=== PATIENT | female | born 1980 | race Caucasian/White ===

== ENCOUNTER 2022-06-16 16:06 | Inpatient (IN) | payer OTHER ==
[~2022-06-16] VITALS: Ht 170.2 cm; Wt 91.2 kg
[2022-06-16 16:37] LABS: BASOPHILS % (AUTO) 0.5 % (0.0-2.0); EOSINOPHILS % (AUTO) 1.5 % (1.0-6.0); HEMATOCRIT 26.3 % (36-46); HEMOGLOBIN 8.4 g/dL (12.0-16.0); LYMPHOCYTES # (AUTO) 1.6 K/uL (1.0-4.8); LYMPHOCYTES % (AUTO) 17.7 % (22.0-44.0); MEAN CORPUSCULAR HEMOGLOBIN 27.8 pg (26.0-34.0); MEAN CORPUSCULAR HGB CONC 31.9 G/dL (31.0-37.0); MEAN CORPUSCULAR VOLUME 87 fL (80-100); MONOCYTES # (AUTO) 0.7 K/uL (0.1-1.0); MONOCYTES % (AUTO) 8.1 % (2.0-9.0); NEUTROPHILS # (AUTO) 6.6 K/uL (1.8-7.7); NEUTROPHILS % (AUTO) 72.2 % (40.0-70.0); PLATELET COUNT (AUTO) 367 K/uL (150-450); RED BLOOD CELL COUNT(AUTO) 3.01 MIL/uL (4.00-5.20); RED CELL DISTRIBUTION WIDTH 15.9 % (11.5-14.5)
[2022-06-16 16:53] LABS: LACTIC ACID 0.6 mmol/L (0.4-2.0)
[2022-06-16 16:57] LABS: ANION GAP 8 mmol/L (8-16); CALCIUM, TOTAL 8.9 mg/dL (8.8-10.5); CARBON DIOXIDE 25 mmol/L (22-29); CHLORIDE 105 mmol/L (98-107); CREATININE 0.69 mg/dL (0.60-1.30); GLOMERULAR FILTR. RATE CALC > 60 mL/min (>60); GLUCOSE,RANDOM 107 mg/dL (70-110); POTASSIUM 3.4 mmol/L (3.5-5.1); SODIUM SERUM 138 mmol/L (136-145)
[2022-06-16 17:02] LABS: ALBUMIN 3.2 g/dL (3.4-5.0); ALKALINE PHOSPHATASE 92 U/L (46-116); ASPARTATE AMINOTRANSFERASE 10 U/L (15-37); BILIRUBIN,TOTAL 0.5 mg/dL (0.1-1.0)
[2022-06-16] MEDS ORDERED: IOHEXOL 350 MG/ML 100 ML VIAL ONE (17:07)
[2022-06-16] MEDS ORDERED: SODIUM CHLORIDE 0.9% 100 ML ONE (17:08)
[2022-06-16 17:12] LABS: TOTAL PROTEIN, SERUM 3.9 g/dL (6.4-8.2)
[2022-06-16] MEDS ORDERED: VANCOMYCIN HCL 1.25 GM in DEXTROSE 5%-WATER 250 ML IV ONE (17:15)
[2022-06-16 17:20] LABS: ALANINE AMINOTRANSFERASE 14 U/L (12-78)
[2022-06-16] MEDS ORDERED: CEFEPIME HCL 2 GM in DEXTROSE 5%-WATER 50 ML IV ONE (18:00)
[2022-06-16 18:24] LABS: COVID AG,FIA SOURCE NASOPHARYNGEAL
[2022-06-16] MEDS ORDERED: ACETAMINOPHEN 325 MG TABLET PO PRN (18:45)
[2022-06-16] MEDS ORDERED: 0.9% SODIUM CHLORIDE 10 ML SYRINGE IVP PRN (18:45)
[2022-06-16] MEDS ORDERED: ONDANSETRON HCL 4 MG/2 ML VIAL IVP PRN ×2 (18:45→19:00)
[2022-06-16] MEDS ORDERED: KETOROLAC TROMETHAMINE 15 MG/ML VIAL IVP PRN (19:00)
[2022-06-16 20:43] VITALS: BP 144/54
[2022-06-16] MEDS: DOCUSATE SODIUM 100 MG CAPSULE PO SCH (21:00)
[2022-06-16 21:23] LABS: % IRON SATURATION 4.3 % (22-44)
[2022-06-16] MEDS ORDERED: SODIUM CHLORIDE 0.9% 500 ML IV ONE (23:28)
[2022-06-16] MEDS: VANCOMYCIN HCL 1.5 GM in DEXTROSE 5%-WATER 250 ML IV SCH (23:41)
[2022-06-17] MEDS: PIPERACILLIN/TAZO 3.375 GM/D5W 50 ML IV SCH ×4 (02:57→20:33)
[2022-06-17 04:12] VITALS: BP 133/82
[2022-06-17 08:24] LABS: BASOPHILS % (AUTO) 1.4 % (0.0-2.0); EOSINOPHILS % (AUTO) 2.4 % (1.0-6.0); HEMATOCRIT 35.8 % (36-46); HEMOGLOBIN 11.8 g/dL (12.0-16.0); MEAN CORPUSCULAR HEMOGLOBIN 28.7 pg (26.0-34.0); MEAN CORPUSCULAR HGB CONC 33.1 G/dL (31.0-37.0); MEAN CORPUSCULAR VOLUME 87 fL (80-100); MONOCYTES # (AUTO) 0.7 K/uL (0.1-1.0); MONOCYTES % (AUTO) 8.1 % (2.0-9.0); NEUTROPHILS # (AUTO) 5.9 K/uL (1.8-7.7); NEUTROPHILS % (AUTO) 66.1 % (40.0-70.0); PLATELET COUNT (AUTO) 499 K/uL (150-450); RED BLOOD CELL COUNT(AUTO) 4.12 MIL/uL (4.00-5.20); RED CELL DISTRIBUTION WIDTH 16.5 % (11.5-14.5)
[2022-06-17 08:38] LABS: ALANINE AMINOTRANSFERASE 12 U/L (12-78); ALKALINE PHOSPHATASE 78 U/L (46-116); ANION GAP 7 mmol/L (8-16); ASPARTATE AMINOTRANSFERASE 9 U/L (15-37); BILIRUBIN,TOTAL 0.4 mg/dL (0.1-1.0); CALCIUM, TOTAL 8.6 mg/dL (8.8-10.5); CARBON DIOXIDE 27 mmol/L (22-29); CHLORIDE 104 mmol/L (98-107); CREATININE 0.72 mg/dL (0.60-1.30); GLOMERULAR FILTR. RATE CALC > 60 mL/min (>60); GLUCOSE,RANDOM 128 mg/dL (70-110); POTASSIUM 3.1 mmol/L (3.5-5.1); SODIUM SERUM 138 mmol/L (136-145)
[2022-06-17 08:41] VITALS: BP 89/52
[2022-06-17] MEDS: SODIUM CHLORIDE 0.9% 1,000 ML IV SCH ×2 (08:41→21:42)
[2022-06-17] MEDS: DOCUSATE SODIUM 100 MG CAPSULE PO SCH ×2 (08:41→21:00)
[2022-06-17] MEDS: VANCOMYCIN HCL 1.5 GM in DEXTROSE 5%-WATER 250 ML IV SCH (08:41)
[2022-06-17] MEDS: VANCOMYCIN HCL 1.25 GM in DEXTROSE 5%-WATER 250 ML IV SCH ×2 (16:45→23:45)
[2022-06-17 19:35] VITALS: BP 132/71
[2022-06-17] MEDS: POTASSIUM CHLORIDE 20 MEQ ER TABLET PO PRN (22:13)
[2022-06-17] MEDS ORDERED: POTASSIUM CHL 10 MEQ/WATER 50 ML IV PRN (22:15)
[2022-06-17] MEDS: HEPARIN SODIUM,PORCINE 5,000 UNITS/ML VIAL SQ SCH (23:50)
[2022-06-18] MEDS: PIPERACILLIN/TAZO 3.375 GM/D5W 50 ML IV SCH ×4 (02:40→20:16)
[2022-06-18 04:05] VITALS: BP 126/72
[2022-06-18 07:04] LABS: EOSINOPHILS % (AUTO) 3.9 % (1.0-6.0); HEMATOCRIT 34.7 % (36-46); HEMOGLOBIN 11.3 g/dL (12.0-16.0); LYMPHOCYTES # (AUTO) 2.1 K/uL (1.0-4.8); LYMPHOCYTES % (AUTO) 31.1 % (22.0-44.0); MEAN CORPUSCULAR HEMOGLOBIN 28.1 pg (26.0-34.0); MEAN CORPUSCULAR HGB CONC 32.6 G/dL (31.0-37.0); MEAN CORPUSCULAR VOLUME 86 fL (80-100); MONOCYTES # (AUTO) 0.6 K/uL (0.1-1.0); NEUTROPHILS # (AUTO) 3.8 K/uL (1.8-7.7); PLATELET COUNT (AUTO) 509 K/uL (150-450); RED BLOOD CELL COUNT(AUTO) 4.03 MIL/uL (4.00-5.20); RED CELL DISTRIBUTION WIDTH 16.1 % (11.5-14.5)
[2022-06-18 07:26] LABS: ANION GAP 7 mmol/L (8-16); CALCIUM, TOTAL 8.7 mg/dL (8.8-10.5); CARBON DIOXIDE 27 mmol/L (22-29); CHLORIDE 103 mmol/L (98-107); CREATININE 0.68 mg/dL (0.60-1.30); GLOMERULAR FILTR. RATE CALC > 60 mL/min (>60); GLUCOSE,RANDOM 97 mg/dL (70-110); POTASSIUM 3.5 mmol/L (3.5-5.1); SODIUM SERUM 137 mmol/L (136-145); VANCOMYCIN,RANDOM 20.6 mcg/mL (25.0-50.0)
[2022-06-18 07:41] VITALS: BP 138/80
[2022-06-18] MEDS: DOCUSATE SODIUM 100 MG CAPSULE PO SCH ×2 (08:16→20:22)
[2022-06-18] MEDS: HEPARIN SODIUM,PORCINE 5,000 UNITS/ML VIAL SQ SCH ×3 (08:19→23:41)
[2022-06-18] MEDS: VANCOMYCIN HCL 1.25 GM in DEXTROSE 5%-WATER 250 ML IV SCH ×3 (09:13→23:36)
[2022-06-18] MEDS: SODIUM CHLORIDE 0.9% 1,000 ML IV SCH (12:21)
[2022-06-18 15:30] VITALS: BP 127/75
[2022-06-18 19:53] VITALS: BP 133/77
[2022-06-19] MEDS: SODIUM CHLORIDE 0.9% 1,000 ML IV SCH (02:39)
[2022-06-19] MEDS: PIPERACILLIN/TAZO 3.375 GM/D5W 50 ML IV SCH ×4 (02:46→20:06)
[2022-06-19 04:12] VITALS: BP 124/84
[2022-06-19 07:24] LABS: BASOPHILS % (AUTO) 0.8 % (0.0-2.0); EOSINOPHILS % (AUTO) 3.2 % (1.0-6.0); HEMATOCRIT 36.2 % (36-46); HEMOGLOBIN 11.6 g/dL (12.0-16.0); LYMPHOCYTES # (AUTO) 2.3 K/uL (1.0-4.8); LYMPHOCYTES % (AUTO) 29.4 % (22.0-44.0); MEAN CORPUSCULAR HEMOGLOBIN 27.7 pg (26.0-34.0); MEAN CORPUSCULAR HGB CONC 32.2 G/dL (31.0-37.0); MEAN CORPUSCULAR VOLUME 86 fL (80-100); MONOCYTES # (AUTO) 0.6 K/uL (0.1-1.0); MONOCYTES % (AUTO) 7.4 % (2.0-9.0); NEUTROPHILS # (AUTO) 4.6 K/uL (1.8-7.7); NEUTROPHILS % (AUTO) 59.2 % (40.0-70.0); PLATELET COUNT (AUTO) 524 K/uL (150-450); RED CELL DISTRIBUTION WIDTH 16.4 % (11.5-14.5)
[2022-06-19 07:36] LABS: ANION GAP 8 mmol/L (8-16); C-REACTIVE PROTEIN QUANT 1.11 mg/dL (0.00-0.30); CALCIUM, TOTAL 9.1 mg/dL (8.8-10.5); CARBON DIOXIDE 27 mmol/L (22-29); CHLORIDE 102 mmol/L (98-107); CREATININE 0.65 mg/dL (0.60-1.30); GLOMERULAR FILTR. RATE CALC > 60 mL/min (>60); GLUCOSE,RANDOM 91 mg/dL (70-110); POTASSIUM 3.5 mmol/L (3.5-5.1); SODIUM SERUM 137 mmol/L (136-145)
[2022-06-19 08:08] VITALS: BP 130/87
[2022-06-19] MEDS: HEPARIN SODIUM,PORCINE 5,000 UNITS/ML VIAL SQ SCH ×3 (08:09→23:57)
[2022-06-19] MEDS: DOCUSATE SODIUM 100 MG CAPSULE PO SCH ×2 (08:10→20:06)
[2022-06-19] MEDS: VANCOMYCIN HCL 1.25 GM in DEXTROSE 5%-WATER 250 ML IV SCH ×3 (09:07→23:57)
[2022-06-19 15:10] VITALS: BP 118/71
[2022-06-19 20:05] VITALS: BP 131/84
[2022-06-20] MEDS: PIPERACILLIN/TAZO 3.375 GM/D5W 50 ML IV SCH ×3 (02:01→15:11)
[2022-06-20] MEDS: SODIUM CHLORIDE 0.9% 1,000 ML IV SCH ×2 (02:01→23:51)
[2022-06-20 04:35] VITALS: BP 134/76
[2022-06-20 07:14] LABS: ANION GAP 10 mmol/L (8-16); CARBON DIOXIDE 27 mmol/L (22-29); CHLORIDE 100 mmol/L (98-107); CREATININE 0.72 mg/dL (0.60-1.30); GLOMERULAR FILTR. RATE CALC > 60 mL/min (>60); GLUCOSE,RANDOM 88 mg/dL (70-110); POTASSIUM 3.6 mmol/L (3.5-5.1); SODIUM SERUM 137 mmol/L (136-145); VANCOMYCIN,RANDOM 25.4 mcg/mL (25.0-50.0)
[2022-06-20 08:36] VITALS: BP 117/79
[2022-06-20] MEDS: DOCUSATE SODIUM 100 MG CAPSULE PO SCH ×2 (09:00→20:24)
[2022-06-20] MEDS: HEPARIN SODIUM,PORCINE 5,000 UNITS/ML VIAL SQ SCH ×3 (09:14→23:51)
[2022-06-20] MEDS: MUPIROCIN CALCIUM 2% 22 GM OINTMENT TP SCH (09:18)
[2022-06-20] MEDS: VANCOMYCIN HCL 1.25 GM in DEXTROSE 5%-WATER 250 ML IV SCH (09:48)
[2022-06-20] MEDS ORDERED: IOHEXOL 350 MG/ML 100 ML VIAL ONE (15:52)
[2022-06-20] MEDS ORDERED: SODIUM CHLORIDE 0.9% 100 ML ONE (15:53)
[2022-06-20 16:37] VITALS: BP 119/72
[2022-06-20 19:50] VITALS: BP 115/80
[2022-06-21 04:52] VITALS: BP 110/63
[2022-06-21 07:47] VITALS: BP 130/68
[2022-06-21] MEDS: HEPARIN SODIUM,PORCINE 5,000 UNITS/ML VIAL SQ SCH ×3 (08:56→23:43)
[2022-06-21] MEDS: MUPIROCIN CALCIUM 2% 22 GM OINTMENT TP SCH (08:56)
[2022-06-21] MEDS: DOCUSATE SODIUM 100 MG CAPSULE PO SCH ×2 (08:56→21:00)
[2022-06-21] MEDS: SODIUM CHLORIDE 0.9% 1,000 ML IV SCH (14:08)
[2022-06-21 14:11] LABS: INR 0.9 (0.9-1.1); PROTHROMBIN TIME 9.8 SEC (9.4-11.6)
[2022-06-21 15:53] VITALS: BP 104/51
[2022-06-21 19:37] VITALS: BP 129/72
[2022-06-22] MEDS: SODIUM CHLORIDE 0.9% 1,000 ML IV SCH ×2 (02:21→16:27)
[2022-06-22 04:58] VITALS: BP 118/80
[2022-06-22 07:42] VITALS: BP 118/70
[2022-06-22] MEDS: HEPARIN SODIUM,PORCINE 5,000 UNITS/ML VIAL SQ SCH ×2 (08:00→15:56)
[2022-06-22] MEDS: DOCUSATE SODIUM 100 MG CAPSULE PO SCH ×2 (09:00→20:34)
[2022-06-22] MEDS: MUPIROCIN CALCIUM 2% 22 GM OINTMENT TP SCH (10:23)
[2022-06-22] MEDS ORDERED: FentaNYL CITRATE PF 100 MCG/2 ML VIAL ONE (14:17)
[2022-06-22] MEDS ORDERED: MIDAZOLAM HCL 2 MG/2 ML VIAL ONE (14:17)
[2022-06-22] MEDS ORDERED: FLUMAZENIL 0.1 MG/ML 5 ML VIAL IVP ONE (14:18)
[2022-06-22] MEDS ORDERED: NALOXONE HCL 0.4 MG/ML VIAL ONE (14:18)
[2022-06-22] MEDS ORDERED: MIDAZOLAM HCL 2 MG/2 ML VIAL IVP ONE ×2 (17:30)
[2022-06-22] MEDS ORDERED: FentaNYL CITRATE PF 100 MCG/2 ML VIAL IVP ONE ×2 (17:30)
[2022-06-22 20:16] VITALS: BP 128/59
[2022-06-23 04:38] VITALS: BP 116/75
[2022-06-23 07:41] VITALS: BP 118/71
[2022-06-23] MEDS: DOCUSATE SODIUM 100 MG CAPSULE PO SCH ×2 (08:30→19:55)
[2022-06-23] MEDS: MUPIROCIN CALCIUM 2% 22 GM OINTMENT TP SCH (08:30)
[2022-06-23] MEDS: HEPARIN SODIUM,PORCINE 5,000 UNITS/ML VIAL SQ SCH ×4 (08:30→23:55)
[2022-06-23] MEDS ORDERED: VANCOMYCIN HCL 1.25 GM in DEXTROSE 5%-WATER 250 ML IV ONE (18:00)
[2022-06-23] MEDS: CEFEPIME HCL 2 GM in DEXTROSE 5%-WATER 50 ML IV SCH (18:16)
[2022-06-23 20:41] VITALS: BP 115/74
[2022-06-23] MEDS: VANCOMYCIN HCL 1.25 GM in DEXTROSE 5%-WATER 250 ML IV SCH (23:51)
[2022-06-24] MEDS: CEFEPIME HCL 2 GM in DEXTROSE 5%-WATER 50 ML IV SCH ×3 (02:40→18:13)
[2022-06-24 04:34] VITALS: BP 118/60
[2022-06-24 07:13] LABS: ANION GAP 10 mmol/L (8-16); CALCIUM, TOTAL 9.3 mg/dL (8.8-10.5); CARBON DIOXIDE 24 mmol/L (22-29); CHLORIDE 100 mmol/L (98-107); CREATININE 0.77 mg/dL (0.60-1.30); GLOMERULAR FILTR. RATE CALC > 60 mL/min (>60); GLUCOSE,RANDOM 90 mg/dL (70-110); POTASSIUM 3.9 mmol/L (3.5-5.1); SODIUM SERUM 134 mmol/L (136-145)
[2022-06-24 07:59] VITALS: BP 115/66
[2022-06-24] MEDS: HEPARIN SODIUM,PORCINE 5,000 UNITS/ML VIAL SQ SCH ×3 (08:14→23:11)
[2022-06-24] MEDS: VANCOMYCIN HCL 1.25 GM in DEXTROSE 5%-WATER 250 ML IV SCH ×3 (08:14→23:11)
[2022-06-24] MEDS: MUPIROCIN CALCIUM 2% 22 GM OINTMENT TP SCH (08:24)
[2022-06-24] MEDS: DOCUSATE SODIUM 100 MG CAPSULE PO SCH ×2 (08:26→21:00)
[2022-06-24 15:51] VITALS: BP 117/67
[2022-06-24 19:36] VITALS: BP 125/66
[2022-06-25] MEDS: CEFEPIME HCL 2 GM in DEXTROSE 5%-WATER 50 ML IV SCH ×3 (02:27→17:43)
[2022-06-25 04:43] VITALS: BP 125/72
[2022-06-25 07:38] VITALS: BP 115/69
[2022-06-25] MEDS: HEPARIN SODIUM,PORCINE 5,000 UNITS/ML VIAL SQ SCH ×3 (07:49→23:15)
[2022-06-25] MEDS: VANCOMYCIN HCL 1.25 GM in DEXTROSE 5%-WATER 250 ML IV SCH ×3 (07:54→23:15)
[2022-06-25] MEDS: DOCUSATE SODIUM 100 MG CAPSULE PO SCH ×2 (07:54→19:44)
[2022-06-25 07:58] LABS: ANION GAP 11 mmol/L (8-16); CALCIUM, TOTAL 9.5 mg/dL (8.8-10.5); CARBON DIOXIDE 24 mmol/L (22-29); CHLORIDE 100 mmol/L (98-107); CREATININE 0.68 mg/dL (0.60-1.30); GLOMERULAR FILTR. RATE CALC > 60 mL/min (>60); GLUCOSE,RANDOM 92 mg/dL (70-110); POTASSIUM 4.1 mmol/L (3.5-5.1); SODIUM SERUM 135 mmol/L (136-145); VANCOMYCIN,RANDOM 20.2 mcg/mL (25.0-50.0)
[2022-06-25] MEDS: MUPIROCIN CALCIUM 2% 22 GM OINTMENT TP SCH (07:59)
[2022-06-25 20:28] VITALS: BP 116/69
[2022-06-26] MEDS: CEFEPIME HCL 2 GM in DEXTROSE 5%-WATER 50 ML IV SCH ×3 (01:50→22:23)
[2022-06-26 07:31] LABS: ANION GAP 6 mmol/L (8-16); CALCIUM, TOTAL 9.3 mg/dL (8.8-10.5); CARBON DIOXIDE 26 mmol/L (22-29); CHLORIDE 98 mmol/L (98-107); CREATININE 0.71 mg/dL (0.60-1.30); GLOMERULAR FILTR. RATE CALC > 60 mL/min (>60); GLUCOSE,RANDOM 93 mg/dL (70-110); POTASSIUM 3.6 mmol/L (3.5-5.1); SODIUM SERUM 130 mmol/L (136-145)
[2022-06-26 08:07] VITALS: BP 108/64
[2022-06-26] MEDS: HEPARIN SODIUM,PORCINE 5,000 UNITS/ML VIAL SQ SCH ×2 (08:33→16:20)
[2022-06-26] MEDS: VANCOMYCIN HCL 1.25 GM in DEXTROSE 5%-WATER 250 ML IV SCH ×2 (08:33→16:20)
[2022-06-26] MEDS: MUPIROCIN CALCIUM 2% 22 GM OINTMENT TP SCH (08:45)
[2022-06-26] MEDS: DOCUSATE SODIUM 100 MG CAPSULE PO SCH ×2 (08:46→21:00)
[2022-06-26 20:30] VITALS: BP 117/68
[2022-06-27] MEDS: VANCOMYCIN HCL 1.25 GM in DEXTROSE 5%-WATER 250 ML IV SCH ×2 (00:01→08:19)
[2022-06-27] MEDS: HEPARIN SODIUM,PORCINE 5,000 UNITS/ML VIAL SQ SCH ×4 (00:01→23:08)
[2022-06-27] MEDS: CEFEPIME HCL 2 GM in DEXTROSE 5%-WATER 50 ML IV SCH ×3 (02:30→18:16)
[2022-06-27 04:54] VITALS: BP 118/74
[2022-06-27 07:03] LABS: BASOPHILS % (AUTO) 0.8 % (0.0-2.0); EOSINOPHILS % (AUTO) 2.5 % (1.0-6.0); HEMATOCRIT 37.9 % (36-46); HEMOGLOBIN 12.6 g/dL (12.0-16.0); LYMPHOCYTES # (AUTO) 2.8 K/uL (1.0-4.8); LYMPHOCYTES % (AUTO) 28.9 % (22.0-44.0); MEAN CORPUSCULAR HEMOGLOBIN 28.8 pg (26.0-34.0); MEAN CORPUSCULAR HGB CONC 33.2 G/dL (31.0-37.0); MEAN CORPUSCULAR VOLUME 87 fL (80-100); MONOCYTES # (AUTO) 0.9 K/uL (0.1-1.0); NEUTROPHILS # (AUTO) 5.8 K/uL (1.8-7.7); NEUTROPHILS % (AUTO) 58.8 % (40.0-70.0); PLATELET COUNT (AUTO) 321 K/uL (150-450); RED BLOOD CELL COUNT(AUTO) 4.38 MIL/uL (4.00-5.20); RED CELL DISTRIBUTION WIDTH 15.7 % (11.5-14.5)
[2022-06-27 07:28] LABS: ALANINE AMINOTRANSFERASE 15 U/L (12-78); ALBUMIN 3.3 g/dL (3.4-5.0); ALKALINE PHOSPHATASE 75 U/L (46-116); ANION GAP 7 mmol/L (8-16); ASPARTATE AMINOTRANSFERASE 9 U/L (15-37); BILIRUBIN,TOTAL 0.3 mg/dL (0.1-1.0); C-REACTIVE PROTEIN QUANT 0.08 mg/dL (0.00-0.30); CARBON DIOXIDE 27 mmol/L (22-29); CHLORIDE 101 mmol/L (98-107); GLOMERULAR FILTR. RATE CALC > 60 mL/min (>60); GLUCOSE,RANDOM 88 mg/dL (70-110); POTASSIUM 3.8 mmol/L (3.5-5.1); SODIUM SERUM 135 mmol/L (136-145); TOTAL PROTEIN, SERUM 7.5 g/dL (6.4-8.2); VANCOMYCIN,RANDOM 32.8 mcg/mL (25.0-50.0)
[2022-06-27 08:00] VITALS: BP 129/64
[2022-06-27] MEDS: MUPIROCIN CALCIUM 2% 22 GM OINTMENT TP SCH (08:19)
[2022-06-27] MEDS: DOCUSATE SODIUM 100 MG CAPSULE PO SCH ×2 (08:26→20:44)
[2022-06-27] MEDS ORDERED: VANCOMYCIN HCL 1 GM in DEXTROSE 5%-WATER 250 ML IV ONE (11:00)
[2022-06-27 15:32] VITALS: BP 110/66
[2022-06-27] MEDS: VANCOMYCIN HCL 1 GM in DEXTROSE 5%-WATER 250 ML IV SCH ×2 (16:31→23:08)
[2022-06-27 20:30] VITALS: BP 126/63
[2022-06-28] MEDS: CEFEPIME HCL 2 GM in DEXTROSE 5%-WATER 50 ML IV SCH ×3 (01:44→17:22)
[2022-06-28 06:18] VITALS: BP 120/64
[2022-06-28] MEDS: VANCOMYCIN HCL 1 GM in DEXTROSE 5%-WATER 250 ML IV SCH ×3 (07:44→23:34)
[2022-06-28] MEDS: HEPARIN SODIUM,PORCINE 5,000 UNITS/ML VIAL SQ SCH ×3 (07:45→23:34)
[2022-06-28] MEDS: DOCUSATE SODIUM 100 MG CAPSULE PO SCH ×2 (07:45→21:00)
[2022-06-28 07:57] LABS: ANION GAP 7 mmol/L (8-16); CALCIUM, TOTAL 9.1 mg/dL (8.8-10.5); CARBON DIOXIDE 27 mmol/L (22-29); CHLORIDE 101 mmol/L (98-107); CREATININE 0.72 mg/dL (0.60-1.30); GLOMERULAR FILTR. RATE CALC > 60 mL/min (>60); GLUCOSE,RANDOM 88 mg/dL (70-110); POTASSIUM 3.8 mmol/L (3.5-5.1); SODIUM SERUM 135 mmol/L (136-145); VANCOMYCIN,RANDOM 16.5 mcg/mL (25.0-50.0)
[2022-06-28 08:08] VITALS: BP 125/67
[2022-06-28] MEDS: MUPIROCIN CALCIUM 2% 22 GM OINTMENT TP SCH (15:22)
[2022-06-28 19:42] VITALS: BP 115/66
[2022-06-29] MEDS: CEFEPIME HCL 2 GM in DEXTROSE 5%-WATER 50 ML IV SCH ×3 (02:16→18:26)
[2022-06-29 05:59] VITALS: BP 124/67
[2022-06-29 07:24] LABS: ANION GAP 8 mmol/L (8-16); CARBON DIOXIDE 27 mmol/L (22-29); CHLORIDE 98 mmol/L (98-107); CREATININE 0.71 mg/dL (0.60-1.30); GLOMERULAR FILTR. RATE CALC > 60 mL/min (>60); GLUCOSE,RANDOM 86 mg/dL (70-110); POTASSIUM 3.6 mmol/L (3.5-5.1); SODIUM SERUM 133 mmol/L (136-145)
[2022-06-29] MEDS: MUPIROCIN CALCIUM 2% 22 GM OINTMENT TP SCH (07:58)
[2022-06-29] MEDS: HEPARIN SODIUM,PORCINE 5,000 UNITS/ML VIAL SQ SCH ×3 (07:58→23:22)
[2022-06-29] MEDS: VANCOMYCIN HCL 1 GM in DEXTROSE 5%-WATER 250 ML IV SCH ×3 (07:58→23:22)
[2022-06-29] MEDS: DOCUSATE SODIUM 100 MG CAPSULE PO SCH ×2 (07:59→20:36)
[2022-06-29 08:00] VITALS: BP 116/70
[2022-06-29 20:13] VITALS: BP 130/75
[2022-06-29] MEDS: BENZONATATE 100 MG CAPSULE PO PRN (20:32)
[2022-06-29] MEDS: ACETAMINOPHEN 325 MG TABLET PO PRN (20:32)
[2022-06-30 00:45] LABS: COVID AG,FIA SOURCE NASOPHARYNGEAL
[2022-06-30] MEDS: CEFEPIME HCL 2 GM in DEXTROSE 5%-WATER 50 ML IV SCH ×3 (01:36→18:43)
[2022-06-30 04:36] VITALS: BP 116/62
[2022-06-30] MEDS: BENZONATATE 100 MG CAPSULE PO PRN (06:11)
[2022-06-30] MEDS: ACETAMINOPHEN 325 MG TABLET PO PRN ×2 (06:19→16:44)
[2022-06-30 07:02] LABS: ANION GAP 9 mmol/L (8-16); CARBON DIOXIDE 26 mmol/L (22-29); CHLORIDE 101 mmol/L (98-107); CREATININE 0.72 mg/dL (0.60-1.30); GLOMERULAR FILTR. RATE CALC > 60 mL/min (>60); GLUCOSE,RANDOM 85 mg/dL (70-110); POTASSIUM 3.7 mmol/L (3.5-5.1); SODIUM SERUM 136 mmol/L (136-145)
[2022-06-30 07:58] VITALS: BP 133/69
[2022-06-30] MEDS: HEPARIN SODIUM,PORCINE 5,000 UNITS/ML VIAL SQ SCH ×3 (08:25→23:33)
[2022-06-30] MEDS: VANCOMYCIN HCL 1 GM in DEXTROSE 5%-WATER 250 ML IV SCH ×3 (08:35→23:33)
[2022-06-30] MEDS: DOCUSATE SODIUM 100 MG CAPSULE PO SCH ×2 (09:00→21:00)
[2022-06-30] MEDS: GuaiFENesin/CODEINE [SUGAR FREE] 200-20MG/10 ML SYRUP UDCUP PO PRN ×3 (11:18→21:16)
[2022-06-30] MEDS ORDERED: SODIUM CHLORIDE 0.9% 1,000 ML ONE (18:49)
[2022-06-30 20:15] VITALS: BP 135/65
[2022-07-01] MEDS: CEFEPIME HCL 2 GM in DEXTROSE 5%-WATER 50 ML IV SCH ×3 (02:03→19:46)
[2022-07-01] MEDS: ACETAMINOPHEN 325 MG TABLET PO PRN (02:20)
[2022-07-01] MEDS: GuaiFENesin/CODEINE [SUGAR FREE] 200-20MG/10 ML SYRUP UDCUP PO PRN ×4 (04:50→23:19)
[2022-07-01 04:56] VITALS: BP 123/83
[2022-07-01 07:46] LABS: ANION GAP 9 mmol/L (8-16); CALCIUM, TOTAL 9.5 mg/dL (8.8-10.5); CARBON DIOXIDE 27 mmol/L (22-29); CHLORIDE 101 mmol/L (98-107); CREATININE 0.69 mg/dL (0.60-1.30); FERRITIN 31 ng/mL (8-252); GLOMERULAR FILTR. RATE CALC > 60 mL/min (>60); GLUCOSE,RANDOM 91 mg/dL (70-110); POTASSIUM 3.6 mmol/L (3.5-5.1); SODIUM SERUM 137 mmol/L (136-145); VANCOMYCIN,RANDOM 15.6 mcg/mL (25.0-50.0)
[2022-07-01 08:15] VITALS: BP 132/75
[2022-07-01] MEDS: HEPARIN SODIUM,PORCINE 5,000 UNITS/ML VIAL SQ SCH ×2 (08:24→17:04)
[2022-07-01] MEDS: VANCOMYCIN HCL 1 GM in DEXTROSE 5%-WATER 250 ML IV SCH ×2 (08:24→17:03)
[2022-07-01] MEDS: DOCUSATE SODIUM 100 MG CAPSULE PO SCH ×2 (08:34→19:51)
[2022-07-01 19:57] VITALS: BP 111/61
[2022-07-02] MEDS: HEPARIN SODIUM,PORCINE 5,000 UNITS/ML VIAL SQ SCH ×4 (00:22→23:46)
[2022-07-02] MEDS: VANCOMYCIN HCL 1 GM in DEXTROSE 5%-WATER 250 ML IV SCH ×4 (00:22→23:47)
[2022-07-02] MEDS: CEFEPIME HCL 2 GM in DEXTROSE 5%-WATER 50 ML IV SCH ×3 (02:49→18:17)
[2022-07-02 04:35] VITALS: BP 107/62
[2022-07-02 08:00] VITALS: BP 101/60
[2022-07-02] MEDS: DOCUSATE SODIUM 100 MG CAPSULE PO SCH ×3 (08:15→21:00)
[2022-07-02] MEDS: GuaiFENesin/CODEINE [SUGAR FREE] 200-20MG/10 ML SYRUP UDCUP PO PRN ×2 (08:22→15:41)
[2022-07-02 08:28] LABS: ANION GAP 8 mmol/L (8-16); CALCIUM, TOTAL 8.7 mg/dL (8.8-10.5); CARBON DIOXIDE 27 mmol/L (22-29); CHLORIDE 103 mmol/L (98-107); CREATININE 0.75 mg/dL (0.60-1.30); GLOMERULAR FILTR. RATE CALC > 60 mL/min (>60); GLUCOSE,RANDOM 89 mg/dL (70-110); POTASSIUM 3.8 mmol/L (3.5-5.1); SODIUM SERUM 138 mmol/L (136-145)
[2022-07-02 19:56] VITALS: BP 105/54
[2022-07-03] MEDS: CEFEPIME HCL 2 GM in DEXTROSE 5%-WATER 50 ML IV SCH ×3 (02:23→17:44)
[2022-07-03] MEDS: GuaiFENesin/CODEINE [SUGAR FREE] 200-20MG/10 ML SYRUP UDCUP PO PRN ×2 (02:24→08:11)
[2022-07-03 02:38] VITALS: BP 109/62
[2022-07-03 06:54] LABS: ANION GAP 10 mmol/L (8-16); CALCIUM, TOTAL 8.9 mg/dL (8.8-10.5); CARBON DIOXIDE 26 mmol/L (22-29); CHLORIDE 101 mmol/L (98-107); CREATININE 0.63 mg/dL (0.60-1.30); GLOMERULAR FILTR. RATE CALC > 60 mL/min (>60); GLUCOSE,RANDOM 88 mg/dL (70-110); POTASSIUM 3.8 mmol/L (3.5-5.1); SODIUM SERUM 137 mmol/L (136-145)
[2022-07-03 07:26] VITALS: BP 108/54
[2022-07-03] MEDS: VANCOMYCIN HCL 1 GM in DEXTROSE 5%-WATER 250 ML IV SCH ×2 (08:05→15:32)
[2022-07-03] MEDS: HEPARIN SODIUM,PORCINE 5,000 UNITS/ML VIAL SQ SCH ×2 (08:06→15:32)
[2022-07-03] MEDS: DOCUSATE SODIUM 100 MG CAPSULE PO SCH ×2 (08:11→21:00)
[2022-07-03] MEDS: ACETAMINOPHEN 325 MG TABLET PO PRN ×2 (10:34→15:32)
[2022-07-03 15:13] VITALS: BP 111/65
[2022-07-03 20:30] VITALS: BP 112/65
[2022-07-04] MEDS: HEPARIN SODIUM,PORCINE 5,000 UNITS/ML VIAL SQ SCH ×3 (00:02→16:00)
[2022-07-04] MEDS: VANCOMYCIN HCL 1 GM in DEXTROSE 5%-WATER 250 ML IV SCH ×2 (00:03→09:25)
[2022-07-04] MEDS: ACETAMINOPHEN 325 MG TABLET PO PRN ×2 (02:26→17:42)
[2022-07-04] MEDS: CEFEPIME HCL 2 GM in DEXTROSE 5%-WATER 50 ML IV SCH ×3 (02:26→16:50)
[2022-07-04 02:34] VITALS: BP 108/56
[2022-07-04 07:09] LABS: ANION GAP 6 mmol/L (8-16); CARBON DIOXIDE 28 mmol/L (22-29); CHLORIDE 101 mmol/L (98-107); GLOMERULAR FILTR. RATE CALC > 60 mL/min (>60); GLUCOSE,RANDOM 86 mg/dL (70-110); POTASSIUM 3.6 mmol/L (3.5-5.1); SODIUM SERUM 135 mmol/L (136-145); VANCOMYCIN,RANDOM 13.2 mcg/mL (25.0-50.0)
[2022-07-04 08:00] VITALS: BP 102/52
[2022-07-04] MEDS ORDERED: VANCOMYCIN HCL 1 GM in DEXTROSE 5%-WATER 250 ML IV SCH (08:00)
[2022-07-04] MEDS: DOCUSATE SODIUM 100 MG CAPSULE PO SCH ×2 (09:00→21:00)
[2022-07-04 16:00] VITALS: BP 138/78
[2022-07-04] MEDS: VANCOMYCIN HCL 1.25 GM in DEXTROSE 5%-WATER 250 ML IV SCH ×2 (17:41→23:58)
[2022-07-04 19:44] VITALS: BP 111/71
[2022-07-04] MEDS: MELATONIN 3 MG TABLET PO PRN (23:59)
[2022-07-05] MEDS: CEFEPIME HCL 2 GM in DEXTROSE 5%-WATER 50 ML IV SCH ×3 (02:35→20:42)
[2022-07-05 04:47] VITALS: BP 103/59
[2022-07-05 07:38] LABS: ANION GAP 6 mmol/L (8-16); CALCIUM, TOTAL 8.8 mg/dL (8.8-10.5); CARBON DIOXIDE 28 mmol/L (22-29); CHLORIDE 101 mmol/L (98-107); CREATININE 0.73 mg/dL (0.60-1.30); GLOMERULAR FILTR. RATE CALC > 60 mL/min (>60); GLUCOSE,RANDOM 92 mg/dL (70-110); POTASSIUM 3.5 mmol/L (3.5-5.1); SODIUM SERUM 135 mmol/L (136-145)
[2022-07-05 07:41] VITALS: BP 106/58
[2022-07-05] MEDS: HEPARIN SODIUM,PORCINE 5,000 UNITS/ML VIAL SQ SCH ×3 (08:00→16:00)
[2022-07-05] MEDS: VANCOMYCIN HCL 1.25 GM in DEXTROSE 5%-WATER 250 ML IV SCH ×2 (08:37→16:29)
[2022-07-05] MEDS: DOCUSATE SODIUM 100 MG CAPSULE PO SCH ×2 (08:53→20:46)
[2022-07-05 16:00] VITALS: BP 109/55
[2022-07-05 20:43] VITALS: BP 144/56
[2022-07-06] MEDS: VANCOMYCIN HCL 1.25 GM in DEXTROSE 5%-WATER 250 ML IV SCH (01:12)
[2022-07-06] MEDS: MELATONIN 3 MG TABLET PO PRN ×2 (01:13→23:26)
[2022-07-06] MEDS: ACETAMINOPHEN 325 MG TABLET PO PRN ×2 (01:14→23:27)
[2022-07-06] MEDS ORDERED: SODIUM CHLORIDE 0.9% 500 ML IV ONE (02:58)
[2022-07-06] MEDS: CEFEPIME HCL 2 GM in DEXTROSE 5%-WATER 50 ML IV SCH ×3 (03:01→18:31)
[2022-07-06 04:58] VITALS: BP 104/62
[2022-07-06 07:36] VITALS: BP 111/57
[2022-07-06 08:00] LABS: ANION GAP 9 mmol/L (8-16); CARBON DIOXIDE 27 mmol/L (22-29); CHLORIDE 101 mmol/L (98-107); CREATININE 0.64 mg/dL (0.60-1.30); GLOMERULAR FILTR. RATE CALC > 60 mL/min (>60); GLUCOSE,RANDOM 93 mg/dL (70-110); POTASSIUM 3.7 mmol/L (3.5-5.1); SODIUM SERUM 137 mmol/L (136-145)
[2022-07-06] MEDS: HEPARIN SODIUM,PORCINE 5,000 UNITS/ML VIAL SQ SCH ×4 (08:00→23:13)
[2022-07-06] MEDS: VANCOMYCIN HCL 1 GM in DEXTROSE 5%-WATER 250 ML IV SCH ×3 (08:09→23:13)
[2022-07-06] MEDS: DOCUSATE SODIUM 100 MG CAPSULE PO SCH ×2 (08:16→19:57)
[2022-07-06 15:27] VITALS: BP 120/69
[2022-07-06 20:23] VITALS: BP 118/61
[2022-07-07] MEDS: CEFEPIME HCL 2 GM in DEXTROSE 5%-WATER 50 ML IV SCH ×3 (01:12→17:34)
[2022-07-07 04:23] VITALS: BP 107/50
[2022-07-07 07:45] LABS: ANION GAP 9 mmol/L (8-16); CALCIUM, TOTAL 8.9 mg/dL (8.8-10.5); CARBON DIOXIDE 27 mmol/L (22-29); CHLORIDE 101 mmol/L (98-107); CREATININE 0.63 mg/dL (0.60-1.30); GLOMERULAR FILTR. RATE CALC > 60 mL/min (>60); GLUCOSE,RANDOM 82 mg/dL (70-110); POTASSIUM 3.6 mmol/L (3.5-5.1); SODIUM SERUM 137 mmol/L (136-145)
[2022-07-07] MEDS: VANCOMYCIN HCL 1 GM in DEXTROSE 5%-WATER 250 ML IV SCH ×3 (07:47→23:19)
[2022-07-07 07:51] LABS: C-REACTIVE PROTEIN QUANT < 0.05 mg/dL (0.00-0.30)
[2022-07-07] MEDS: HEPARIN SODIUM,PORCINE 5,000 UNITS/ML VIAL SQ SCH ×3 (07:54→23:19)
[2022-07-07] MEDS: DOCUSATE SODIUM 100 MG CAPSULE PO SCH ×2 (07:55→20:11)
[2022-07-07 08:00] VITALS: BP 96/51
[2022-07-07 08:57] VITALS: BP 116/60
[2022-07-07 19:50] VITALS: BP 109/58
[2022-07-07] MEDS: MELATONIN 3 MG TABLET PO PRN (23:18)
[2022-07-08] MEDS: CEFEPIME HCL 2 GM in DEXTROSE 5%-WATER 50 ML IV SCH ×3 (02:05→18:34)
[2022-07-08 04:25] VITALS: BP 108/48
[2022-07-08] MEDS: DOCUSATE SODIUM 100 MG CAPSULE PO SCH ×2 (07:41→21:00)
[2022-07-08] MEDS: HEPARIN SODIUM,PORCINE 5,000 UNITS/ML VIAL SQ SCH ×3 (07:42→23:10)
[2022-07-08] MEDS: VANCOMYCIN HCL 1 GM in DEXTROSE 5%-WATER 250 ML IV SCH ×3 (07:43→23:10)
[2022-07-08] MEDS: ACETAMINOPHEN 325 MG TABLET PO PRN (07:48)
[2022-07-08] MEDS ORDERED: SODIUM CHLORIDE 0.9% 500 ML IV ONE (08:00)
[2022-07-08 08:18] VITALS: BP 109/57
[2022-07-08 12:26] LABS: ANION GAP 7 mmol/L (8-16); CALCIUM, TOTAL 8.7 mg/dL (8.8-10.5); CARBON DIOXIDE 26 mmol/L (22-29); CHLORIDE 102 mmol/L (98-107); CREATININE 0.61 mg/dL (0.60-1.30); GLOMERULAR FILTR. RATE CALC > 60 mL/min (>60); GLUCOSE,RANDOM 101 mg/dL (70-110); POTASSIUM 4.1 mmol/L (3.5-5.1); SODIUM SERUM 135 mmol/L (136-145); VANCOMYCIN,RANDOM 18.7 mcg/mL (25.0-50.0)
[2022-07-08 16:35] VITALS: BP 129/75
[2022-07-08 21:09] VITALS: BP 120/65
[2022-07-08] MEDS: MELATONIN 3 MG TABLET PO PRN (23:10)
[2022-07-09] MEDS: CEFEPIME HCL 2 GM in DEXTROSE 5%-WATER 50 ML IV SCH ×3 (01:40→17:17)
[2022-07-09 05:01] VITALS: BP 115/60
[2022-07-09 07:40] VITALS: BP 107/67
[2022-07-09] MEDS: HEPARIN SODIUM,PORCINE 5,000 UNITS/ML VIAL SQ SCH ×2 (09:28→16:00)
[2022-07-09] MEDS: VANCOMYCIN HCL 1 GM in DEXTROSE 5%-WATER 250 ML IV SCH (09:28)
[2022-07-09] MEDS: DOCUSATE SODIUM 100 MG CAPSULE PO SCH ×2 (09:28→21:00)
[2022-07-09 09:44] LABS: ANION GAP 9 mmol/L (8-16); CALCIUM, TOTAL 7.6 mg/dL (8.8-10.5); CARBON DIOXIDE 24 mmol/L (22-29); CHLORIDE 104 mmol/L (98-107); CREATININE 0.63 mg/dL (0.60-1.30); GLOMERULAR FILTR. RATE CALC > 60 mL/min (>60); GLUCOSE,RANDOM 97 mg/dL (70-110); SODIUM SERUM 137 mmol/L (136-145); VANCOMYCIN,RANDOM 9.6 mcg/mL (25.0-50.0)
[2022-07-09 15:57] VITALS: BP 110/66
[2022-07-09] MEDS: VANCOMYCIN HCL 1.25 GM in DEXTROSE 5%-WATER 250 ML IV SCH (18:11)
[2022-07-09 19:10] VITALS: BP 114/78
[2022-07-09] MEDS: POTASSIUM CHLORIDE 20 MEQ ER TABLET PO PRN (19:59)
[2022-07-10] MEDS: VANCOMYCIN HCL 1.25 GM in DEXTROSE 5%-WATER 250 ML IV SCH ×3 (00:43→16:29)
[2022-07-10] MEDS: HEPARIN SODIUM,PORCINE 5,000 UNITS/ML VIAL SQ SCH ×3 (00:43→16:28)
[2022-07-10] MEDS: CEFEPIME HCL 2 GM in DEXTROSE 5%-WATER 50 ML IV SCH ×2 (02:00→11:25)
[2022-07-10 04:56] VITALS: BP 112/73
[2022-07-10 07:19] VITALS: BP 123/76
[2022-07-10] MEDS: DOCUSATE SODIUM 100 MG CAPSULE PO SCH (08:26)
[2022-07-10] MEDS ORDERED: SODIUM CHLORIDE 0.9% 500 ML IV ONE (11:28)
[2022-07-10 12:15] LABS: ANION GAP 4 mmol/L (8-16); CALCIUM, TOTAL 8.8 mg/dL (8.8-10.5); CARBON DIOXIDE 30 mmol/L (22-29); CHLORIDE 104 mmol/L (98-107); CREATININE 0.58 mg/dL (0.60-1.30); GLOMERULAR FILTR. RATE CALC > 60 mL/min (>60); GLUCOSE,RANDOM 121 mg/dL (70-110); POTASSIUM 3.8 mmol/L (3.5-5.1); SODIUM SERUM 138 mmol/L (136-145)
[2022-07-10] MEDS ORDERED: ALTEPLASE 2 MG VIAL IVCATH ONE (15:00)
[2022-07-10 15:48] VITALS: BP 127/66
[2022-07-10] MEDS: ACETAMINOPHEN 325 MG TABLET PO PRN (17:12)
== END 2022-07-10 18:00 | DRG 539 ==
LOC: EMS 16:06 → 6S 19:49
PROVIDERS: ADMIT Internal Medicine; ATTEND Internal Medicine
PROC: 05HY33Z Insertion of Infusion Device into Upper Vein, Percutaneous Approach (ICD-10-PCS; principal; 2022-06-25)
DX: M86.8X8 Other osteomyelitis, other site (principal); U07.1 COVID-19; L03.313 Cellulitis of chest wall; M00.9 Pyogenic arthritis, unspecified; D75.838 Other thrombocytosis; D64.9 Anemia, unspecified; K44.9 Diaphragmatic hernia without obstruction or gangrene; K76.0 Fatty (change of) liver, not elsewhere classified; Z79.2 Long term (current) use of antibiotics; Z68.32 Body mass index [BMI] 32.0-32.9, adult; I95.9 Hypotension, unspecified
CPT/HCPCS: 36245; 36569; 71045; 71260; 76937; 77012; 80048; 80053; 80202; 82728; 83540; 83550; 83605; 84132; 84145; 84703; 85025; 85045; 85610; 86140; 87040; 87070; 87075; 87205; 99285; J0692; J1644; J1885; J2250; J2310; J2543; J2997; J3010; J3370; J3490; J7030; J7040; J7050; J7060; Q9967; 36415-L1; 36415-TC; U0003